=== PATIENT | female | born 1995 ===

== ENCOUNTER 2020-04-15 18:46 | Outpatient (REF) | payer OTHER, SELFPAY ==
[2020-04-15 22:04] LABS: Bacteria Moderate HPF (Negative); C & S Indicated? C&S Done As Ordered; Casts Negative LPF (Negative); Crystals Negative HPF (Negative); Epithelial Cells Few HPF (Negative); Mucus Negative (Negative); RBC 0-2 HPF (0-2)
== END 2020-04-15 19:06 ==
LOC: NCHCN 18:46
PROVIDERS: Visit Provider Nurse Practitioner Community Health
DX: R30.0 Dysuria (principal)
CPT/HCPCS: 81015; 87086